=== PATIENT | male | born 1965 | race Caucasian/White ===

== ENCOUNTER 2020-12-02 13:14 | Emergency (ER) | payer BC, OTHER ==
[~2020-12-02] VITALS: Ht 177.8 cm; Wt 78.0 kg
[2020-12-02 13:58] LABS: BASOPHILS % (AUTO) 0 % (0-10); EOSINOPHILS # (AUTO) 0.1 10^3/uL (0.0-0.3); EOSINOPHILS % (AUTO) 1 % (0-10); HEMATOCRIT 48 % (40-54); LYMPHOCYTES # (AUTO) 1.7 10^3/uL (1.0-4.0); LYMPHOCYTES % (AUTO) 45 % (12-44); MEAN CORPUSCULAR HEMOGLOBIN 31 pg (25-34); MEAN CORPUSCULAR HGB CONC 35 g/dL (32-36); MEAN CORPUSCULAR VOLUME 88 fL (80-99); MEAN PLATELET VOLUME 11.4 fL (9.0-12.2); MONOCYTES # (AUTO) 0.3 10^3/uL (0.0-1.0); MONOCYTES % (AUTO) 8 % (0-12); NEUTROPHILS # (AUTO) 1.7 10^3/uL (1.8-7.8); NEUTROPHILS % (AUTO) 45 % (42-75); PLATELET COUNT 153 10^3/uL (130-400); WHITE BLOOD COUNT 3.7 10^3/uL (4.3-11.0)
[2020-12-02] MEDS ORDERED: LACTATED RINGERS 1,000 ML IV ONE (14:00)
--- NOTE | 2020-12-02 14:03 | ED General ---
General Chief Complaint: Cough/Cold/Flu Symptoms Stated Complaint: SOB Source of Information: Patient Exam Limitations: No Limitations History of Present Illness Date Seen by Provider: Dec 02, 2020 Time Seen by Provider: 13:33 Initial Comments Here with report of shortness of air that has worsened. He has Covid infection currently and diagnosed 10 days ago. That was at his [place] [facility]. He did not get vaccination. Does not have underlying significant medical problems. He does not smoke. States that he just feels weaker and is more short of breath. Arrives dyspneic when walking and but O2 saturations greater than 92%. Denies nausea, vomiting or diarrhea. Reports drinking fluid okay but not eating as well. Mainly concerned about timing and shortness of breath. Timing/Duration: Getting Worse, Other (10 days) Severity: Moderate Associated Systoms: Cough; No Fever/Chills; Loss of Appetite, Malaise; No Nausea/Vomiting; Shortness of Air, Weakness Allergies and Home Medications Allergies Coded Allergies: No Known Drug Allergies (Unverified , 12/02/20) Patient Home Medication List Home Medication List Reviewed: Yes Review of Systems Review of Systems Constitutional: see HPI, fever EENTM: No nose congestion, No throat pain Respiratory: cough, short of breath Cardiovascular: No chest pain, No edema Gastrointestinal: No abdominal pain, No nausea, No vomiting Genitourinary: No dysuria, No frequency Musculoskeletal: No muscle pain; muscle weakness Skin: no symptoms reported All Other Systems Reviewed Negative Unless Noted: Yes Past Ebweitn-Lnhrwr-Ytmcar Hx Patient Social History Tobacco Use?: No Substance use?: No Alcohol Use?: Yes Alcohol Frequency: Once in a while Past Medical History Surgeries: Yes Abdominal (Hernia), Orthopedic Respiratory: Yes (Lung injury but no diagnosis of COPD or asthma) Cardiac: No Neurological: No Genitourinary: No Musculoskeletal: No Endocrine: No Cancer: No Family Medical History Reviewed Nursing Family Hx No Pertinent Family Hx Physical Exam-Suspected Sepsis Physical Exam Vital Signs Vital Signs - First Documented 12/02/20 14:17 Temp 36.0 Pulse 70 Resp 28 B/P (MAP) 141/91 (108) Pulse Ox 100 O2 Delivery Room Air Capillary Refill : Height, Weight, BMI Height: '" Weight: lbs. oz. kg; BMI Method: General Appearance: No Apparent Distress, WD/WN, Anxious HEENT: PERRL/EOMI, Pharynx Normal Neck: Non Tender, Supple Respiratory: Lungs Clear, Normal Breath Sounds Cardiovascular: Regular Rate, Rhythm, No Murmur Gastrointestinal: Non Tender, Soft Back: Normal Inspection, No CVA Tenderness, No Vertebral Tenderness Extremity: Normal Range of Motion, Non Tender, No Calf Tenderness, No Pedal Edema Neurologic/Psychiatric: Alert, Oriented x3, No Motor/Sensory Deficits Skin: normal color, warm/dry Progress/Results/Core Measures Suspected Sepsis SIRS Temperature: Pulse: Respiratory Rate: Laboratory Tests 12/02/20 13:42: White Blood Count 3.7L Blood Pressure / Mean: Laboratory Tests 12/02/20 13:42: Creatinine 0.96, INR Comment 1.0, Platelet Count 153, Total Bilirubin 0.6 Results/Orders Lab Results Laboratory Tests Test 12/02/20 13:42 Range/Units White Blood Count 3.7 L 4.3-11.0 10^3/uL Red Blood Count 5.51 4.30-5.52 10^6/uL Hemoglobin 17.0 13.3-17.7 g/dL Hematocrit 48 40-54 % Mean Corpuscular Volume 88 80-99 fL Mean Corpuscular Hemoglobin 31 25-34 pg Mean Corpuscular Hemoglobin Concent 35 32-36 g/dL Red Cell Distribution Width 12.1 10.0-14.5 % Platelet Count 153 130-400 10^3/uL Mean Platelet Volume 11.4 9.0-12.2 fL Immature Granulocyte % (Auto) 0 % Neutrophils (%) (Auto) 45 42-75 % Lymphocytes (%) (Auto) 45 H 12-44 % Monocytes (%) (Auto) 8 0-12 % Eosinophils (%) (Auto) 1 0-10 % Basophils (%) (Auto) 0 0-10 % Neutrophils # (Auto) 1.7 L 1.8-7.8 10^3/uL Lymphocytes # (Auto) 1.7 1.0-4.0 10^3/uL Monocytes # (Auto) 0.3 0.0-1.0 10^3/uL Eosinophils # (Auto) 0.1 0.0-0.3 10^3/uL Basophils # (Auto) 0.0 0.0-0.1 10^3/uL Immature Granulocyte # (Auto) 0.0 0.0-0.1 10^3/uL Prothrombin Time 13.8 12.2-14.7 SEC INR Comment 1.0 0.8-1.4 Activated Partial Thromboplast Time 34 24-35 SEC D-Dimer 0.48 0.00-0.49 UG/ML Sodium Level 139 135-145 MMOL/L Potassium Level 4.4 3.6-5.0 MMOL/L Chloride Level 106 98-107 MMOL/L Carbon Dioxide Level 23 21-32 MMOL/L Anion Gap 10 5-14 MMOL/L Blood Urea Nitrogen 13 7-18 MG/DL Creatinine 0.96 0.60-1.30 MG/DL Estimat Glomerular Filtration Rate 81 BUN/Creatinine Ratio 14 Glucose Level 114 H 70-105 MG/DL Calcium Level 10.3 H 8.5-10.1 MG/DL Corrected Calcium 10.1 8.5-10.1 MG/DL Magnesium Level 3.2 H 1.6-2.4 MG/DL Total Bilirubin 0.6 0.1-1.0 MG/DL Aspartate Amino Transf (AST/SGOT) 31 5-34 U/L Alanine Aminotransferase (ALT/SGPT) 48 0-55 U/L Alkaline Phosphatase 80 40-136 U/L Myoglobin 46.6 10.0-92.0 NG/ML Troponin I < 0.028 <0.028 NG/ML C-Reactive Protein High Sensitivity 1.14 H 0.00-0.50 MG/DL B-Type Natriuretic Peptide < 10.0 <100.0 PG/ML Total Protein 8.2 6.4-8.2 GM/DL Albumin 4.3 3.2-4.5 GM/DL Procalcitonin 0.50 H <0.10 NG/ML My Orders Orders - ESTHER VERA MD Lactated Ringers (Lr 1000 Ml Iv Solution (12/02/20 14:00) Covid-19 External Lab Results (12/02/20 13:50) Fibrin Degradation Products (12/02/20 14:03) Hs C Reactive Protein (12/02/20 14:03) Procalcitonin (Pct) (12/02/20 14:03) Medications Given in ED Current Medications Medications Dose Ordered Sig/Claire Route Start Time Stop Time Status Last Admin Dose Admin Lactated Ringer's 1,000 ml @ 0 mls/hr Q0M ONCE IV 12/02/20 14:00 12/02/20 14:01 DC 12/02/20 13:59 1,000 MLS/HR Vital Signs/I&O 12/02/20 12/02/20 14:17 14:17 Temp 36.0 Pulse 70 Resp 28 B/P (MAP) 141/91 (108) Pulse Ox 100 O2 Delivery Room Air Room Air Capillary Refill : Progress Note : Progress Note Seen and evaluated. IV, labs, EKG and chest x-ray ordered. LR 1 L bolus. Monitor patient. 1547: Labs reviewed and chest x-ray reviewed. He has minimal patchy infiltrates. O2 sats still 96 to 97% while resting. He does have pulse oximeter at home. He was instructed on monitoring his pulse ox while resting and return precautions. Discharged home with return precautions. Patient verbalized understanding instructions and agreement with plan. ECG Initial ECG Impression Date: Dec 02, 2020 Initial ECG Impression Time: 13:39 Initial ECG Rate: 69 Initial ECG Rhythm: Normal Sinus Initial ECG Comparisson: No Previous ECG Available Comment Sinus rhythm with normal axis. No evidence of ST elevation IA. No previous available for comparison. Interpreted by me. Diagnostic Imaging Diagonstic Imaging: Xray Plain Films/CT/US/NM/MRI: chest Comments [facility], [place] NAME: BILL GARCIA [facility] REC#: [id number] PT STATUS: REG ER : 1965 PHYSICIAN: ANTONIO FISCHER [employer] TECHNICIAN ADMIT DATE: 12/02/20/ER Draft Date of Exam:12/02/20 CHEST 1 VIEW, AP/PA ONLY CHEST 1 VIEW, AP/PA ONLY Indication: Shortness of breath and cough Comparison: None available. Findings: Patchy ill-defined pulmonary opacities are present in the lung bases, greater on the left. No pleural effusion or pneumothorax. Normal cardiomediastinal silhouette. Impression: 1. Patchy basilar pulmonary opacities may be due to multifocal pneumonia. Dictated on workstation # [id number] Dict: 12/02/20 1420 Trans: 12/02/20 1422 [employer] [facility] [id number] Interpreted by: DOMINGA BISHOP MD Electronically signed by: Departure Impression Primary Impression: COVID-19 virus infection Disposition: 01 HOME, SELF-CARE Condition: Stable Departure-Patient Inst. Decision time for Depature: 15:48 Patient Instructions: COVID-19 Overview Add. Discharge Instructions: All discharge instructions reviewed with patient and/or family. Voiced understanding. You should monitor your oxygen saturations at home and return if your resting O2 saturation is 90% or less. Your current oxygen saturation is 96% on room air while resting. You may continue Tylenol/acetaminophen and/or ibuprofen as needed for fever, chills or body aches. It is very important that you drink plenty of fluids and get plenty of rest. It is likely that you will have shortness of breath with activity for quite some time as you heal from the Covid infection. Follow-up with your doctor in a few days for recheck as needed. Continue to isolate for health department guidelines until symptoms are improving. Return for worse pain, fever, vomiting, weakness, breathing problems or other concerns as needed. ESTHER VERA MD Dec 02, 2020 14:03
[2020-12-02 14:13] LABS: PROTHROMBIN TIME PATIENT 13.8 SEC (12.2-14.7)
[2020-12-02 14:16] LABS: ALBUMIN 4.3 GM/DL (3.2-4.5); BILIRUBIN,TOTAL 0.6 MG/DL (0.1-1.0); CALCIUM 10.3 MG/DL (8.5-10.1); CREATININE SERUM 0.96 MG/DL (0.60-1.30); MAGNESIUM 3.2 MG/DL (1.6-2.4); POTASSIUM 4.4 MMOL/L (3.6-5.0); TOTAL PROTEIN 8.2 GM/DL (6.4-8.2)
--- NOTE | 2020-12-02 14:22 | Diagnostic Imaging Report ---
CHEST 1 VIEW, AP/PA ONLY Indication: Shortness of breath and cough Comparison: None available. Findings: Patchy ill-defined pulmonary opacities are present in the lung bases, greater on the left. No pleural effusion or pneumothorax. Normal cardiomediastinal silhouette. Impression: 1. Patchy basilar pulmonary opacities may be due to multifocal pneumonia. Dictated by: Dictated on workstation # [id number]
[2020-12-02 16:16] VITALS: BP 131/89
== END 2020-12-02 16:16 | disposition home or self-care (01) ==
LOC: ER 13:18
DX: U07.1 COVID-19 (principal)
CPT/HCPCS: 36415; 71045; 80053; 83735; 83874; 83880; 84145; 84484; 85025; 85379; 85610; 85730; 86141; 93005; 93041

== ENCOUNTER 2021-10-13 18:27 | Emergency (ER) | payer BC ==
[2021-10-13] MEDS ORDERED: IBUPROFEN 600 MG (MOTRIN) TAB PO ONE (19:00)
--- NOTE | 2021-10-13 19:01 | ED General ---
General Chief Complaint: Fever-Adult/Adol Stated Complaint: FEVER/CHILLS/HEADACHE Source of Information: Patient Exam Limitations: No Limitations History of Present Illness Date Seen by Provider: Oct 13, 2021 Time Seen by Provider: 18:59 Initial Comments This is a 55-year-old male who presents to the emergency room for evaluation of fever, chills, headache and body aches. He states he is also been congested. The symptoms started last night and seem to be worse today. He has not taken any medications prior to arrival. He denies any other ill contacts. Patient also tells me he has been working out in the sun all day and has not been drinking as much water as normal. Timing/Duration: 1 Day Severity: Moderate Associated Systoms: Fever/Chills Allergies and Home Medications Allergies Coded Allergies: No Known Drug Allergies (Unverified , 12/02/20) Patient Home Medication List Home Medication List Reviewed: Yes Review of Systems Review of Systems Constitutional: chills, fever EENTM: nose congestion Respiratory: no symptoms reported; No dyspnea on exertion, No short of breath Cardiovascular: No edema Gastrointestinal: no symptoms reported Genitourinary: no symptoms reported Musculoskeletal: muscle pain Skin: no symptoms reported Past Cbgandl-Vefpmd-Scntwo Hx Patient Social History Tobacco Use?: No Substance use?: No Alcohol Use?: Yes Alcohol type: Beer Alcohol Frequency: Once in a while Pt feels they are or have been: No Immunizations Up To Date Influenza Vaccine Up-to-Date: No; Not Current Past Medical History Surgery/Hospitalization HX: HTN HERNIA, WIRST, TERRANCE Surgeries: Yes Abdominal, Orthopedic Respiratory: Yes (Lung injury but no diagnosis of COPD or asthma) Cardiac: No Neurological: No Genitourinary: No Musculoskeletal: No Endocrine: No Cancer: No Family Medical History No Pertinent Family Hx Physical Exam Vital Signs Vital Signs - First Documented 10/13/21 18:58 Temp 37.9 Pulse 99 Resp 16 B/P (MAP) 128/83 (98) Capillary Refill : Height, Weight, BMI Height: '" Weight: lbs. oz. kg; 24.00 BMI Method: General Appearance: No Apparent Distress, WD/WN HEENT: PERRL/EOMI, TMs Normal Neck: Full Range of Motion, Normal Inspection Respiratory: Chest Non Tender, Lungs Clear, Normal Breath Sounds Cardiovascular: Regular Rate, Rhythm Gastrointestinal: Non Tender, Soft Extremity: Normal Capillary Refill, Non Tender Neurologic/Psychiatric: Alert, Oriented x3, heater room helper II-XII Norm as Tested Skin: Normal Color, Warm/Dry Progress/Results/Core Measures Suspected Sepsis SIRS Temperature: Pulse: Respiratory Rate: Blood Pressure / Mean: Results/Orders Lab Results Laboratory Tests Test 10/13/21 19:16 Range/Units Influenza Type A (RT-PCR) Not Detected Not Detecte Influenza Type B (RT-PCR) Not Detected Not Detecte SARS-CoV-2 RNA (RT-PCR) Not Detected Not Detecte My Orders Orders - DONNA OROPEZA Covid 19 Inhouse Test (10/13/21 18:55) Influenza A And B By Pcr (10/13/21 18:55) Ibuprofen Tablet (Motrin Tablet) (10/13/21 19:00) Ns Iv 1000 Ml (Sodium Chloride 0.9%) (10/13/21 20:09) Ketorolac Injection (Toradol Injection) (10/13/21 20:15) Diphenhydramine Injection (Benadryl Inje (10/13/21 21:30) Metoclopramide Injection (Reglan Injecti (10/13/21 21:30) Medications Given in ED Current Medications Medications Dose Ordered Sig/Claire Route Start Time Stop Time Status Last Admin Dose Admin Diphenhydramine HCl 25 mg ONCE ONCE IM 10/13/21 21:30 10/13/21 21:31 DC 10/13/21 21:57 25 MG Ibuprofen 600 mg ONCE ONCE PO 10/13/21 19:00 10/13/21 19:01 DC 10/13/21 19:15 600 MG Ketorolac Tromethamine 15 mg ONCE ONCE IV 10/13/21 20:15 10/13/21 20:16 DC 10/13/21 20:22 15 MG Metoclopramide HCl 10 mg ONCE ONCE IVP 10/13/21 21:30 10/13/21 21:31 DC 10/13/21 21:56 10 MG Vital Signs/I&O 10/13/21 18:58 Temp 37.9 Pulse 99 Resp 16 B/P (MAP) 128/83 (98) Capillary Refill : Departure Communication (Admissions) Patient is afebrile, nontoxic and in no distress. He does complain of a mild headache behind his eyes which I have given multiple medications for with moderate relief. At this point I recommended symptomatic care at home as I do not believe that there is any evidence of meningitis, encephalitis, sepsis or other emergent condition. I do not feel that lab work or lumbar puncture would be indicated in patient's symptoms are most consistent with a viral syndrome. I did recommend that he recheck his COVID test in 2 days if his symptoms persist and he return to the emergency room if his symptoms worsen in any way. Impression Primary Impression: Viral syndrome Disposition: HOME, SELF-CARE Condition: Improved Departure-Patient Inst. Decision time for Depature: 22:13 Referrals: NO,LOCAL PHYSICIAN (PCP/Family) Primary Care Physician Patient Instructions: Dehydration, Adult (DC), Viral Syndrome (DC) Add. Discharge Instructions: Please keep a close eye on your symptoms. If your headache worsens in any way I want you to return to the emergency room for further evaluation. Continue to push fluids at home until your urine is clear. All discharge instructions reviewed with patient and/or family. Voiced understanding. Scripts Diclofenac Sodium (Diclofenac Sodium) 75 Mg Tablet. 75 MG PO BID for 7 Days, #14 TAB Prov: DONNA OROPEZA 10/13/21 DONNA OROPEZA Oct 13, 2021 19:01
[2021-10-13] MEDS ORDERED: NS IV 1000 ML 1,000 ML IV STA (20:09)
[2021-10-13] MEDS ORDERED: KETOROLAC 30 MG/ML VIAL IV ONE (20:15)
[2021-10-13] MEDS ORDERED: diphenhydrAMINE 50 MG/ML INJ (BENADRYL) IM ONE (21:30)
[2021-10-13] MEDS ORDERED: METOCLOPRAMIDE INJ 10 MG/2 ML (REGLAN) IVP ONE (21:30)
[2021-10-13] MEDS ORDERED: DICL75TA2 PO (22:14)
[2021-10-13 22:22] VITALS: BP 116/76
== END 2021-10-13 22:24 | disposition home or self-care (01) ==
LOC: EDUNIT# 18:27 → ER 18:30
DX: B34.9 Viral infection, unspecified (principal); Z20.822 Contact with and (suspected) exposure to COVID-19
CPT/HCPCS: 87636; 99283

== ENCOUNTER 2021-10-15 20:14 | Emergency (ER) | payer BC ==
[~2021-10-15] VITALS: Ht 175 cm; Wt 99.0 kg
[~2021-10-15 20:14] MED LIST: DICL75TA2 PO
[2021-10-15] MEDS ORDERED: NS IV 1000 ML 1,000 ML IV STA ×2 (20:53→22:27)
[2021-10-15] MEDS ORDERED: KETOROLAC 30 MG/ML VIAL IVP ONE (21:00)
--- NOTE | 2021-10-15 21:03 | ED General ---
General Stated Complaint: FEVER - SOA - DARK URINE Source of Information: Patient Exam Limitations: No Limitations History of Present Illness Date Seen by Provider: Oct 15, 2021 Time Seen by Provider: 20:58 Initial Comments Patient is a 55-year-old male who presents to the ED for generalized weakness, fever, dark urine. Symptoms started this past Thursday. Patient reports, headache, neck pain, back pain, abd pain, weakness, Shortness of breath, cough, and fatigued since Thursday. Concern for dehydration. 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 Patient Was seen here on Thursday diagno sed with viral syndrome. Has had dark urine since Thursday but that improved some today. He reports some loose stool. Still having fatigue and weakness. Has associated mild dry cough with shortness of breath. He reports neck pain, headache, low back pain and joint pain. He reports chronic pain to his neck and back and states today's pain in his head, neck, and back feels similar. Patient was afebrile until this evening had a temperature of 104.9. He had a negative COVID influenza swab performed here few days ago. is concerned for labored breathing with increased breathing. Denies of any chest pain at this time. Reports chronic lower abdominal pain from previous hernia repairs but seems wrose today. Denies of any sore throat, visual change, unilateral muscle weakness or sensory changes. No one else at home has been sick. Patient states he was bitten by 2 ticks in his lower abdomen a few weeks ago. Unknown length of attachment Allergies and Home Medications Allergies Coded Allergies: No Known Drug Allergies (Unverified , 12/02/20) Patient Home Medication List Home Medication List Reviewed: Yes Diclofenac Sodium (Diclofenac Sodium) 75 Mg Tablet., 75 MG PO BID Prescribed by: Dave Case on 10/13/21 0905 Review of Systems Review of Systems Constitutional: chills, malaise, weakness EENTM: No hearing loss, No blurred vision, No mouth pain, No throat pain, No throat swelling Respiratory: No cough, No short of breath Gastrointestinal: abdominal pain, diarrhea; No nausea, No vomiting Genitourinary: No decreased output; other (dark urine) Musculoskeletal: back pain, joint pain Skin: No change in color, No change in hair/nails All Other Systems Reviewed Negative Unless Noted: Yes Past Mmleofg-Ascjvc-Jmjnnx Hx Past Medical History Surgery/Hospitalization HX: HTN HERNIA, WIRST, TERRANCE Surgeries: Yes Abdominal, Orthopedic Respiratory: Yes (Lung injury but no diagnosis of COPD or asthma) Cardiac: No Neurological: No Genitourinary: No Musculoskeletal: No Endocrine: No Cancer: No Family Medical History No Pertinent Family Hx Physical Exam Vital Signs Capillary Refill : Height, Weight, BMI Height: '" Weight: lbs. oz. kg; 24.00 BMI Method: General Appearance: No Apparent Distress, WD/WN Eyes: Bilateral Eye Normal Inspection, Bilateral Eye PERRL, Bilateral Eye EOMI HEENT: PERRL/EOMI, TMs Normal, Normal ENT Inspection, Pharynx Normal Neck: Full Range of Motion, Normal Inspection, Supple, Other (Bilateral cervical paraspinal muscle tenderness) Respiratory: Chest Non Tender, Lungs Clear, Normal Breath Sounds, No Accessory Muscle Use, No Respiratory Distress Cardiovascular: No Edema, No Gallop, No JVD, No Murmur, Tachycardia Gastrointestinal: Normal Bowel Sounds, No Organomegaly, No Pulsatile Mass, Non Tender Extremity: Normal Capillary Refill, Normal Inspection, Normal Range of Motion, Non Tender Neurologic/Psychiatric: Alert, Oriented x3, No Motor/Sensory Deficits, Normal Mood/Affect Skin: Normal Color, Warm/Dry Progress/Results/Core Measures Suspected Sepsis SIRS Temperature: Pulse: Respiratory Rate: Laboratory Tests 10/15/21 21:00: White Blood Count 2.0L Blood Pressure / Mean: Laboratory Tests 10/15/21 21:00: Creatinine 1.07, INR Comment 1.1, Platelet Count 65L, Total Bilirubin 1.7H Results/Orders Lab Results Laboratory Tests Test 10/15/21 21:00 10/15/21 21:06 Range/Units White Blood Count 2.0 L 4.3-11.0 10^3/uL Red Blood Count 4.72 4.30-5.52 10^6/uL Hemoglobin 14.6 13.3-17.7 g/dL Hematocrit 41 40-54 % Mean Corpuscular Volume 87 80-99 fL Mean Corpuscular Hemoglobin 31 25-34 pg Mean Corpuscular Hemoglobin Concent 35 32-36 g/dL Red Cell Distribution Width 12.5 10.0-14.5 % Platelet Count 65 L 130-400 10^3/uL Mean Platelet Volume 11.9 9.0-12.2 fL Immature Granulocyte % (Auto) 1 % Neutrophils (%) (Auto) 68 42-75 % Lymphocytes (%) (Auto) 25 12-44 % Monocytes (%) (Auto) 6 0-12 % Eosinophils (%) (Auto) 0 0-10 % Basophils (%) (Auto) 1 0-10 % Neutrophils # (Auto) 1.3 L 1.8-7.8 10^3/uL Lymphocytes # (Auto) 0.5 L 1.0-4.0 10^3/uL Monocytes # (Auto) 0.1 0.0-1.0 10^3/uL Eosinophils # (Auto) 0.0 0.0-0.3 10^3/uL Basophils # (Auto) 0.0 0.0-0.1 10^3/uL Immature Granulocyte # (Auto) 0.0 0.0-0.1 10^3/uL Percent Immature Platelet Fraction 8.6 H 0.0-7.6 % Prothrombin Time 14.6 12.2-14.7 SEC INR Comment 1.1 0.8-1.4 Activated Partial Thromboplast Time 35 24-35 SEC Urine Color YELLOW Urine Clarity CLEAR Urine pH 6.0 5-9 Urine Specific Terrell 1.010 L 1.016-1.022 Urine Protein 1+ H NEGATIVE Urine Glucose (UA) NEGATIVE NEGATIVE Urine Ketones NEGATIVE NEGATIVE Urine Nitrite NEGATIVE NEGATIVE Urine Bilirubin NEGATIVE NEGATIVE Urine Urobilinogen 2.0 < = 1.0 MG/DL Urine Leukocyte Esterase NEGATIVE NEGATIVE Urine RBC (Auto) 1+ H NEGATIVE Urine RBC 2-5 H /HPF Urine WBC 2-5 /HPF Urine Squamous Epithelial Cells NONE /HPF Urine Renal Epithelial Cells NONE /HPF Urine Crystals NONE /LPF Urine Bacteria NEGATIVE /HPF Urine Casts NONE /LPF Urine Mucus NEGATIVE /LPF Urine Culture Indicated NO Sodium Level 132 L 135-145 MMOL/L Potassium Level 3.7 3.6-5.0 MMOL/L Chloride Level 98 98-107 MMOL/L Carbon Dioxide Level 23 21-32 MMOL/L Anion Gap 11 5-14 MMOL/L Blood Urea Nitrogen 11 7-18 MG/DL Creatinine 1.07 0.60-1.30 MG/DL Estimat Glomerular Filtration Rate 81 BUN/Creatinine Ratio 10 Glucose Level 162 H 70-105 MG/DL Calcium Level 9.4 8.5-10.1 MG/DL Corrected Calcium 9.6 8.5-10.1 MG/DL Magnesium Level 1.6 1.6-2.4 MG/DL Total Bilirubin 1.7 H 0.1-1.0 MG/DL Aspartate Amino Transf (AST/SGOT) 95 H 5-34 U/L Alanine Aminotransferase (ALT/SGPT) 140 H 0-55 U/L Alkaline Phosphatase 175 H 40-136 U/L Total Creatine Kinase 133 30-200 U/L Total Protein 7.1 6.4-8.2 GM/DL Albumin 3.7 3.2-4.5 GM/DL Lipase 80 H 8-78 U/L Lyme Disease Screen IgG & IgM Ab 0.12 0.00-0.89 Index Lyme Antibody Interpretation Negative Negative Ehrlichia chaffeensis IgG Antibody <1:16 <1:16 Ehrlichia chaffeensis IgM Antibody <1:10 <1:10 Hepatitis A IgM Antibody Non-Reactive Non-Reactive Hepatitis B Surface Antigen Non-Reactive Non-Reactive Hepatitis B Core IgM Antibody Non-Reactive Non-Reactive Hepatitis C Antibody Non-Reactive Non-Reactive Spotted Fever Group IgG Antibody <1:16 <1:16 Spotted Fever Group IgM Antibody <1:10 <1:10 [place] Antibody <1:20 Influenza Type A (RT-PCR) Not Detected Not Detecte Influenza Type B (RT-PCR) Not Detected Not Detecte SARS-CoV-2 RNA (RT-PCR) Not Detected Not Detecte My Orders Orders - ARABELLA KEMP PA Cbc With Automated Diff (10/15/21 20:53) Comprehensive Metabolic Panel (10/15/21 20:53) Lipase (10/15/21 20:53) Magnesium (10/15/21 20:53) Ua Culture If Indicated (10/15/21 20:53) Chest 1 View, Ap/Pa Only (10/15/21 20:53) Ns Iv 1000 Ml (Sodium Chloride 0.9%) (10/15/21 20:53) Covid 19 Inhouse Test (10/15/21 20:53) Influenza A And B By Pcr (10/15/21 20:53) Creatine Kinase (10/15/21 20:55) Ketorolac Injection (Toradol Injection) (10/15/21 21:00) Ketorolac Injection (Toradol Injection) (10/15/21 21:05) Ct Abdomen/Pelvis W (10/15/21 21:27) Iohexol Injection (Omnipaque 350 Mg/Ml 1 (10/15/21 21:30) Received Contrast (Hold Metformin- Contr (10/15/21:30) Ns (Ivpb) (Sodium Chloride 0.9% Ivpb Bag (10/15/21 21:30) Sodium Chloride Flush (Catheter Flush Sy (10/15/21:30) Hepatitis Panel Acute (10/15/21:) Partial Thromboplastin Time (10/15/21:31) Protime With Inr (10/15/21:31) Tick Panel With Lyme Eia (10/15/21 21:36) Ns Iv 1000 Ml (Sodium Chloride 0.9%) (10/15/21 22:) Medications Given in ED Vital Signs/I&O Capillary Refill : Departure Communication (PCP) Patient presents ED with flulike symptoms since Thursday. Was seen here in the ER diagnosed with viral syndrome. Continue having symptoms but did have some improvement yesterday until this evening when he developed a fever as high as 104.9. concerning for labored breathing. Reports a mild cough. He reports chronic back pain neck pain and hip pain secondary to degenerative disc disease. Does take pain medication. He has no meningeal signs. Does report headache but states is secondary to his neck and feels very similar. He has no focal neural deficits. He did have a fever here was given Toradol. Slightly tachycardic. He reports dark urine with some improvement today. Urinalysis was negative for infection. With a small amount of hematuria. Patient lab work showed leukocytopenia 2.0 with platelet count of 65. Neutrophils 1.3. Denies history of cancer. Denies of any night sweats, weight loss previously. No one else at home with similar symptoms. States he was bit by a tick 2 weeks ago and his tick panel currently pending. He reports history of Lyme disease in the past. He had elevated liver enzymes but reports history of fatty liver. Hepatitis panel was ordered. COVID influenza was negative. Chest x-ray without evidence of pneumonia. No current chest pain. Patient was given a liter of fluid. His heart rate improved. Patient was setting up and moving around the room. Concerning for the abnormal lab work. Concerning that this may be viral however he needs continued trend of his hematology and await results of the hepatitis panel and tick panel. Discussed importance of hydration. If patient becomes worse such as shortness of breath, increased weakness patient will need to return back to ED for further evaluation. Did attempt to get blood cultures, lactic acid because of the low white blood count,neutrophils and tachycardia Before discharge but patient and were eager to leave. He states he will continue monitoring his temperature and symptoms. Needs a follow-up with primary care physician in 1 to 2 days for reevaluation with lab work. Recommend taking Tylenol and ibuprofen. No history of cancer or family history of blood cancer. Impression Primary Impression: Leukocytopenia Additional Impression: Elevated liver enzymes Disposition: HOME, SELF-CARE Condition: Stable Departure-Patient Inst. Decision time for Depature: 23:28 Referrals: [facility] [place]YSIC[place] (PCP) Primary Care Physician Patient Instructions: Fever, Adult (DC) Add. Discharge Instructions: Follow-up with your primary care physician for further evaluation of white blood count of 2.0, platelet of 65. Continue with oral hydration. Tylenol ibuprofen at home for fever. If any worsening symptoms return back to ED for further evaluation ARABELLA KEMP Oct 15, 2021 21:03
[2021-10-15] MEDS ORDERED: KETOROLAC 30 MG/ML VIAL ONE (21:05)
[2021-10-15 21:08] LABS: BASOPHILS % (AUTO) 1 % (0-10); EOSINOPHILS % (AUTO) 0 % (0-10); MEAN CORPUSCULAR VOLUME 87 fL (80-99); MONOCYTES # (AUTO) 0.1 10^3/uL (0.0-1.0); MONOCYTES % (AUTO) 6 % (0-12)
[2021-10-15 21:09] LABS: HEMATOCRIT 41 % (40-54); HEMOGLOBIN 14.6 g/dL (13.3-17.7); LYMPHOCYTES # (AUTO) 0.5 10^3/uL (1.0-4.0); LYMPHOCYTES % (AUTO) 25 % (12-44); MEAN CORPUSCULAR HEMOGLOBIN 31 pg (25-34); MEAN CORPUSCULAR HGB CONC 35 g/dL (32-36); MEAN PLATELET VOLUME 11.9 fL (9.0-12.2); NEUTROPHILS # (AUTO) 1.3 10^3/uL (1.8-7.8); NEUTROPHILS % (AUTO) 68 % (42-75); PLATELET COUNT 65 10^3/uL (130-400)
[2021-10-15 21:16] LABS: ALBUMIN 3.7 GM/DL (3.2-4.5); POTASSIUM 3.7 MMOL/L (3.6-5.0)
[2021-10-15 21:17] LABS: CALCIUM 9.4 MG/DL (8.5-10.1)
[2021-10-15 21:18] LABS: BILIRUBIN,URINE NEGATIVE (NEGATIVE); CLARITY,URINE CLEAR; COLOR,URINE YELLOW; GLUCOSE, URINE (UA) NEGATIVE (NEGATIVE); KETONES,URINE NEGATIVE (NEGATIVE); LEUKOCYTE ESTERASE ,URINE NEGATIVE (NEGATIVE); NITRITE,URINE NEGATIVE (NEGATIVE); PROTEIN,URINE 1+ (NEGATIVE)
[2021-10-15 21:19] LABS: TOTAL PROTEIN 7.1 GM/DL (6.4-8.2)
[2021-10-15 21:20] LABS: BILIRUBIN,TOTAL 1.7 MG/DL (0.1-1.0)
[2021-10-15 21:22] LABS: CREATININE SERUM 1.07 MG/DL (0.60-1.30)
[2021-10-15 21:25] LABS: BACTERIA,URINE NEGATIVE /HPF; MAGNESIUM 1.6 MG/DL (1.6-2.4)
[2021-10-15] MEDS ORDERED: CATHETER FLUSH 10 ML SYR IV PRN (21:30)
[2021-10-15] MEDS ORDERED: HOLD METFORMIN - RECEIVED CONTRAST 20 ML VIAL IV SCH (21:30)
[2021-10-15] MEDS ORDERED: NS 100 ML (IVPB) BAG IV ONE (21:30)
[2021-10-15] MEDS ORDERED: IOHEXOL 350 MG/ML 100 ML (OMNIPAQUE 350) VIAL IV ONE (21:30)
--- NOTE | 2021-10-15 21:30 | Diagnostic Imaging Report ---
INDICATION: Cough Frontal chest obtained at 09:22 p.m. and compared with 12/02/2020. Heart and mediastinal silhouette appear unremarkable. There are mild increased basilar markings which are probably due to poor inspiration. There is no definite consolidation, pneumothorax or pleural fluid. IMPRESSION: Mild increased basilar markings are present which are probably due to poor inspiration. No definite consolidation, pneumothorax or pleural fluid. The appearance of the chest was similar on 12/02/2020. Dictated by: Dictated on workstation # [id number]
[2021-10-15 21:41] LABS: INR 1.1 (0.8-1.4); PROTHROMBIN TIME PATIENT 14.6 SEC (12.2-14.7)
--- NOTE | 2021-10-15 22:32 | Diagnostic Imaging Report ---
INDICATION: Abdominal pain TECHNIQUE: Multiple contiguous axial images were obtained through the abdomen and pelvis after administration of intravenous contrast. Auto Exposure Controls were utilized during the CT exam to meet ALARA standards for radiation dose reduction. All CT scans use one or more of the following dose optimizing techniques: automated exposure control, MA and/or KvP adjustment based on patient size and exam type or iterative reconstruction. COMPARISON: There is no previous CT of the abdomen and pelvis for comparison. The visualized portions of the lung bases are clear except for some mild bibasilar atelectasis. There is no pleural fluid. There is no free intraperitoneal air. The liver shows mild low-density change compatible with fatty infiltration. There is no focal liver lesion. Gallbladder is surgically absent. The spleen, adrenals, and pancreas are unremarkable. Kidneys bilaterally showed no hydronephrosis. There is an exophytic intermediate density lesion in the left kidney measuring 2.1 cm. There is some perinephric scarring. There is no retroperitoneal mass or adenopathy. There are a few minimal nodes in the retroperitoneum which are not of pathologic size. Visualized bowel loops show no overt obstruction. The appendix appears normal. There is no pelvic mass or free fluid. There are postsurgical changes in the anterior portion of the pelvis. IMPRESSION: No definite acute abnormality in the abdomen or pelvis. There is mild bibasilar atelectasis. There is fatty change in the liver. Patient has had previous cholecystectomy. There is an intermediate density exophytic lesion off the left kidney which may be a complicated cyst or a small mass. Suggest sonographic follow-up of this abnormality. There is no sign of bowel obstruction or abscess. Dictated by: Dictated on workstation # [id number]
[2021-10-15 23:35] VITALS: BP 130/100
[2021-10-16 21:32] LABS: HEPATITIS C ANTIBODY C Non-Reactive (Non-Reactive)
== END 2021-10-15 23:35 | disposition home or self-care (01) ==
LOC: EDUNIT# 20:14 → ER 20:15
DX: D72.819 Decreased white blood cell count, unspecified (principal); R94.5 Abnormal results of liver function studies; Z20.822 Contact with and (suspected) exposure to COVID-19
CPT/HCPCS: 36415; 71045; 74177; 80053; 80074; 81000; 82550; 83690; 83735; 85025; 85610; 85730; 86618; 86666; 86668; 86757; 87636; 99283